=== PATIENT | female | born 1980 | race Caucasian/White ===

== ENCOUNTER 2016-05-13 00:02 | Emergency (ER) | payer SELFPAY ==
[2016-05-13 00:18] VITALS: BP 128/78; TEMP 97.8; O2SAT 98
[2016-05-13] MEDS ORDERED: IBUPROFEN 200 MG TAB PO ONE (00:18)
[2016-05-13] MEDS ORDERED: predniSONE 20 MG TAB PO ONE (00:18)
[2016-05-13] MEDS ORDERED: CETIRIZINE HCL 10 MG TAB PO ONE (00:18)
--- NOTE | 2016-05-13 00:47 | ED.PDOC ---
History of Present Illness - General Chief Complaint: ENT Problem Stated Complaint: c/o cant breath, nasal congestion Time Seen by Provider: 05/13/16 00:11 Source: patient Exam Limitations: no limitations - History of Present Illness Initial Comments: the patient is a 35-year-old female presenting to the emergency room secondary to cough congestion and sore throat progressive over the last 36 hours. No vomiting. She has been mildly hoarse. She feels a little short of breath. Sputum is mildly productive. Low-grade fevers. Generalized malaise. No chest pain. No pleuritic pain. Timing/Duration: 24 hours Severity: moderate Improving Factors: nothing Worsening Factors: nothing Associated Symptoms: cough, loss of appetite, malaise Allergies/Adverse Reactions: Allergies Penicillins Allergy (Severe, Verified 05/13/16 00:10) Review of Systems - Review of Systems Constitutional: States: fever, malaise EENTM: States: nose congestion, throat pain - mild Respiratory: States: cough, short of breath - ild Cardiology: States: no symptoms reported Gastrointestinal/Abdominal: States: no symptoms reported Genitourinary: States: no symptoms reported Musculoskeletal: States: no symptoms reported Skin: States: no symptoms reported Neurological: States: no symptoms reported All other Systems: No Change from Baseline Past Medical History (General) - Patient Medical History Hx Seizures: No Hx Stroke: No Hx Dementia: No Hx Asthma: No Hx of COPD: No Hx Cardiac Disorders: Yes - SVT, not taking any meds Hx Congestive Heart Failure: No Hx Pacemaker: No Hx Hypertension: No Hx Thyroid Disease: No Hx Diabetes: No Hx Gastroesophageal Reflux: No Hx Renal Disease: No Hx Cancer: No Hx of HIV: No Hx Hepatitis C: No Hx MRSA: No Surgical History: other - Vaccination History Hx Tetanus, Diphtheria Vaccination: No Hx Influenza Vaccination: No Hx Pneumococcal Vaccination: No Immunizations Up to Date: No - Social History Hx Tobacco Use: No Hx Chewing Tobacco Use: No Hx Alcohol Use: Yes Hx Substance Use: No Hx Substance Use Treatment: No Hx Depression: No Hx Physical Abuse: No Hx Emotional Abuse: No Hx Suspected Abuse: No - Female History Patient is a Female of Child Bearing Age (10 -59 yrs old): No Hx Last Menstrual Period: 11/04/15 Patient : No Expected Date of Delivery:: 12/14/12 Family Medical History - Family History Mother Family History: Unknown Living Status: Hx Cardiac Disease: Yes Physical Exam - Physical Exam General Appearance: Alert, Comfortable, No apparent distress Eye Exam: bilateral normal Ears, Nose, Throat: hearing grossly normal, nasal congestion, pharyngeal erythema - mild Neck: non-tender, full range of motion, supple - voice is hoarse Respiratory: chest non-tender, lungs clear, normal breath sounds, no respiratory distress, no accessory muscle use Cardiovascular/Chest: normal peripheral pulses, regular rate, rhythm, no edema Peripheral Pulses: radial,right: 2+, radial,left: 2+ Gastrointestinal/Abdominal: non tender, soft Rectal Exam: deferred Back Exam: normal inspection, no CVA tenderness Extremity: normal range of motion, non-tender, normal inspection, no pedal edema , no calf tenderness, normal capillary refill Neurologic: alert, normal mood/affect, oriented x 3 Skin Exam: normal color Comments: Vital Signs - 24 hr 05/13/16 00:12 Temperature 97.8 F Pulse Rate [ 78 Left] Respiratory 20 Rate Blood Pressure 128/78 [Left Arm] O2 Sat by Pulse 98 Oximetry Progress - Progress Progress: 05/13/16 00:47 the patient is a 35-year-old female presenting with what appears to be a viral upper respiratory tract infection. She was given one small dose of prednisone along with a dose of ibuprofen and Zyrtec. She can continue the ibuprofen and Zyrtec at home for the next few days. She can take 2 ibuprofen every 8 hours for the next 2 days with food. She can take 1 Zyrtec twice daily for the next 3 days. She needs to keep well-hydrated. She will additionally be written for 2 days of low-dose prednisone. Rapid flu was negative. ER warnings were given for any acute worsening. Follow up with primary care doctor towards the end of the week. Anticipate a cough for 2 weeks, and the hoarseness will likely worsen before it gets better. Departure - Departure Clinical Impression: Common cold Disposition: Discharge to Home or Self Care Condition: Fair Departure Forms: ED Discharge - Pt. Copy, Patient Portal Self Enrollment Instructions: DI for Common Cold Diet: regular diet Activity: increase activity as tolerated Referrals: GERDA ZEPEDA IV STAFF ELECTRONIC WARFARE OFFICER [Primary Care Provider] - 1-5 Days Additional Instructions: the patient is a 35-year-old female presenting with what appears to be a viral upper respiratory tract infection. She was given one small dose of prednisone along with a dose of ibuprofen and Zyrtec. She can continue the ibuprofen and Zyrtec at home for the next few days. She can take 2 ibuprofen every 8 hours for the next 2 days with food. She can take 1 Zyrtec twice daily for the next 3 days. She needs to keep well-hydrated. She will additionally be written for 2 days of low-dose prednisone. Rapid flu was negative. ER warnings were given for any acute worsening. Follow up with primary care doctor towards the end of the week. Anticipate a cough for 2 weeks, and the hoarseness will likely worsen before it gets better.
== END 2016-05-13 00:58 | disposition home or self-care (01) ==
LOC: ER 00:02
DX: J00 Acute nasopharyngitis [common cold] (principal); Z88.0 Allergy status to penicillin; I47.1 Supraventricular tachycardia
CPT/HCPCS: 87502; J7512

== ENCOUNTER 2016-08-25 19:11 | Emergency (ER) | payer SELFPAY ==
[2016-08-25 19:28] VITALS: BP 108/74
[2016-08-25] MEDS ORDERED: predniSONE 20 MG TAB PO ONE (19:33)
[2016-08-25] MEDS ORDERED: AZITHROMYCIN 250 MG TAB PO ONE (19:33)
--- NOTE | 2016-08-25 19:35 | ED.PDOC ---
History of Present Illness - General Chief Complaint: Respiratory Problem Stated Complaint: cough,fever, Time Seen by Provider: 08/25/16 19:32 Source: patient Exam Limitations: no limitations - History of Present Illness Initial Comments: the patient is a 35-year-old female presenting to the emergency room secondary to cough and mild shortness of breath the last 24-48 hours. Cough is largely nonproductive. She has had a mild runny nose. Mild sore throat. She does have a history of recurrent bronchitis and something of a questionable history of asthma. She has been using her albuterol inhaler frequently over the last few days. No chest pain. No syncopal or near syncope. Severity: moderate Improving Factors: nothing Worsening Factors: nothing Associated Symptoms: cough Allergies/Adverse Reactions: Allergies Penicillins Allergy (Severe, Verified 05/13/16 00:10) Home Medications: Ambulatory Orders Azithromycin 500 mg PO DAILY #4 tab 08/25/16 predniSONE [Prednisone] 20 mg PO DAILY #5 tab 08/25/16 Review of Systems - Review of Systems Constitutional: States: malaise EENTM: States: nose congestion, throat pain Respiratory: States: cough, short of breath - mild Cardiology: States: no symptoms reported Gastrointestinal/Abdominal: States: no symptoms reported Genitourinary: States: no symptoms reported Musculoskeletal: States: no symptoms reported Skin: States: no symptoms reported Neurological: States: no symptoms reported Endocrine: States: no symptoms reported All other Systems: No Change from Baseline Past Medical History (General) - Patient Medical History Hx Seizures: No Hx Stroke: No Hx Dementia: No Hx Asthma: No Hx of COPD: No Hx Cardiac Disorders: Yes - SVT Hx Congestive Heart Failure: No Hx Pacemaker: No Hx Hypertension: No Hx Thyroid Disease: No Hx Diabetes: No Hx Gastroesophageal Reflux: No Hx Renal Disease: No Hx Cancer: No Hx of HIV: No Hx Hepatitis C: No Hx MRSA: No Surgical History: tonsillectomy - Vaccination History Hx Tetanus, Diphtheria Vaccination: No Hx Influenza Vaccination: No Hx Pneumococcal Vaccination: No - Social History Hx Tobacco Use: No Hx Chewing Tobacco Use: No Hx Alcohol Use: Yes Hx Substance Use: No Hx Substance Use Treatment: No Hx Depression: No Hx Physical Abuse: No Hx Emotional Abuse: No Hx Suspected Abuse: No - Female History Patient is a Female of Child Bearing Age (10 -59 yrs old): Yes Hx Last Menstrual Period: 11/04/15 Patient : No Expected Date of Delivery:: 12/14/12 Family Medical History - Family History Mother Family History: Unknown Living Status: Hx Cardiac Disease: Yes Physical Exam - Physical Exam General Appearance: Alert, Comfortable, No apparent distress Eye Exam: bilateral normal Ears, Nose, Throat: nasal congestion, pharyngeal erythema - mildmild Neck: non-tender, full range of motion, supple Respiratory: chest non-tender, lungs clear, normal breath sounds, no respiratory distress, no accessory muscle use - she does however have a coarse cough Cardiovascular/Chest: normal peripheral pulses, regular rate, rhythm, no edema Peripheral Pulses: radial,right: 2+, radial,left: 2+, dorsalis pedis,right: 2+, dorsalis pedis,left: 2+ Gastrointestinal/Abdominal: normal bowel sounds, non tender, soft Rectal Exam: deferred Back Exam: normal inspection Extremity: normal range of motion, no pedal edema, normal capillary refill Neurologic: chemical handler II-XII nml as tested, alert, normal mood/affect, oriented x 3 Skin Exam: normal color Comments: Vital Signs - 24 hr 08/25/16 19:24 Temperature 98.6 F Pulse Rate [ 94 H Left Brachial] Respiratory 16 Rate Blood Pressure 108/74 [Left Arm] O2 Sat by Pulse 97 Oximetry Progress - Progress Progress: 08/25/16 19:35 the patient is a 35-year-old female with a history of asthma presenting with what appears to be a mild asthma flare with associated bronchitis. The patient will be placed on azithromycin 500 mg daily for 5 days with the first dose given here. She will also be placed on oral prednisone for 5 days with the first dose given here. She can continue her inhalers at home. She needs to follow up with her primary care doctor before the weekend. ER warnings are given for any acute worsening. Departure - Departure Clinical Impression: Bronchitis Asthma with exacerbation Qualifiers: Asthma severity: mild intermittent Qualified Code(s): J45.21 - Mild intermittent asthma with (acute) exacerbation Disposition: Discharge to Home or Self Care Condition: Fair Departure Forms: ED Discharge - Pt. Copy, Patient Portal Self Enrollment Instructions: DI for Asthma -- Adult Diet: regular diet Activity: increase activity as tolerated Referrals: GERDA ZEPEDA IV ELIGIBILITY ANALYST [Primary Care Provider] - 1-5 Days Prescriptions: Azithromycin 500 mg PO DAILY #4 tab predniSONE [Prednisone] 20 mg PO DAILY #5 tab Home Medications: Ambulatory Orders Azithromycin 500 mg PO DAILY #4 tab 08/25/16 predniSONE [Prednisone] 20 mg PO DAILY #5 tab 08/25/16 Additional Instructions: the patient is a 35-year-old female with a history of asthma presenting with what appears to be a mild asthma flare with associated bronchitis. The patient will be placed on azithromycin 500 mg daily for 5 days with the first dose given here. She will also be placed on oral prednisone for 5 days with the first dose given here. She can continue her inhalers at home. She needs to follow up with her primary care doctor before the weekend. ER warnings are given for any acute worsening.
[2016-08-25 20:05] VITALS: TEMP 98.8; O2SAT 96
== END 2016-08-25 20:00 | disposition home or self-care (01) ==
LOC: ER 19:11
DX: J45.21 Mild intermittent asthma with (acute) exacerbation (principal); I47.1 Supraventricular tachycardia; Z88.0 Allergy status to penicillin; Z79.899 Other long term (current) drug therapy
CPT/HCPCS: J7512; Q0144

== ENCOUNTER 2016-12-10 12:20 | Emergency (ER) | payer SELFPAY ==
[2016-12-10 12:45] VITALS: TEMP 99.8
--- NOTE | 2016-12-10 12:49 | ED.PDOC ---
History of Present Illness - General Chief Complaint: GI Problem Time Seen by Provider: 12/10/16 12:43 Source: patient Exam Limitations: no limitations - History of Present Illness Initial Comments: Patient presents with N/V/D for 6 hours. It all began at the same time. She has generalized abdominal pain which worsens then gets better right after vomiting. Has had x 2 and tubal ligation. No similarly sick contacts. No hematochezia. No other complaints. Ate at a chicken place last night. Timing/Duration: 4-6 hours Severity: moderate Improving Factors: nothing Worsening Factors: nothing Associated Symptoms: nausea/vomiting Allergies/Adverse Reactions: Allergies Penicillins Allergy (Severe, Verified 05/13/16 00:10) Home Medications: Ambulatory Orders Azithromycin 500 mg PO DAILY #4 tab 08/25/16 predniSONE [Prednisone] 20 mg PO DAILY #5 tab 08/25/16 Ondansetron [Zofran Odt] 4 mg PO Q4HR #12 tab 12/10/16 Review of Systems - Review of Systems Constitutional: States: no symptoms reported EENTM: States: no symptoms reported Respiratory: States: no symptoms reported Cardiology: States: no symptoms reported Gastrointestinal/Abdominal: States: see HPI Musculoskeletal: States: no symptoms reported Skin: States: no symptoms reported Neurological: States: no symptoms reported Endocrine: States: no symptoms reported Hematologic/Lymphatic: States: no symptoms reported Past Medical History (General) - Patient Medical History Hx Seizures: No Hx Stroke: No Hx Dementia: No Hx Asthma: No Hx of COPD: No Hx Cardiac Disorders: Yes - SVT Hx Congestive Heart Failure: No Hx Pacemaker: No Hx Hypertension: No Hx Thyroid Disease: No Hx Diabetes: No Hx Gastroesophageal Reflux: No Hx Renal Disease: No Hx Cancer: No Hx of HIV: No Hx Hepatitis C: No Hx MRSA: No Surgical History: tonsillectomy, other - Vaccination History Hx Tetanus, Diphtheria Vaccination: No Hx Influenza Vaccination: No Hx Pneumococcal Vaccination: No - Social History Hx Tobacco Use: No Hx Chewing Tobacco Use: No Hx Alcohol Use: Yes Hx Substance Use: No Hx Substance Use Treatment: No Hx Depression: No Hx Physical Abuse: No Hx Emotional Abuse: No Hx Suspected Abuse: No - Female History Hx Last Menstrual Period: 11/04/15 Patient : No Expected Date of Delivery:: 12/14/12 Family Medical History - Family History Mother Family History: Unknown Living Status: Hx Cardiac Disease: Yes Departure - Departure Clinical Impression: Gastroenteritis Disposition: Discharge to Home or Self Care Condition: Good Departure Forms: ED Discharge - Pt. Copy, Patient Portal Self Enrollment Diet: resume usual diet Activity: increase activity as tolerated Referrals: GERDA ZEPEDA IV, SUPERVISOR PAINTING [Primary Care Provider] - 1-2 Weeks Prescriptions: Ondansetron [Zofran Odt] 4 mg PO Q4HR #12 tab Home Medications: Ambulatory Orders Azithromycin 500 mg PO DAILY #4 tab 08/25/16 predniSONE [Prednisone] 20 mg PO DAILY #5 tab 08/25/16 Ondansetron [Zofran Odt] 4 mg PO Q4HR #12 tab 12/10/16
[2016-12-10] MEDS ORDERED: SODIUM CHLORIDE 0.9% 1000ML 1,000 ML IVS ONE (12:53)
[2016-12-10] MEDS ORDERED: ONDANSETRON INJ 4 MG/2 ML VIAL IV ONE (12:53)
[2016-12-10 14:34] VITALS: BP 132/85; O2SAT 97
== END 2016-12-10 14:34 | disposition home or self-care (01) ==
LOC: ER 12:20
DX: K52.9 Noninfective gastroenteritis and colitis, unspecified (principal); I47.1 Supraventricular tachycardia; Z88.0 Allergy status to penicillin; Z79.899 Other long term (current) drug therapy
CPT/HCPCS: 36415; 80053; 81001; 83690; 85025; J2405; J7030

== ENCOUNTER 2017-06-11 10:21 | Inpatient (IN) | payer SELFPAY ==
[2017-06-11] MEDS ORDERED: ACETAMINOPHEN 500 MG TAB ONE ×2 (10:45→11:24)
[2017-06-11] MEDS ORDERED: KETOROLAC TROMETHAMINE INJ 30 MG/ML VIAL IV ONE ×2 (10:51→16:07)
[2017-06-11] MEDS ORDERED: SODIUM CHLORIDE 0.9% 1000ML 1,000 ML IVS ONE ×2 (10:51→14:42)
[2017-06-11] MEDS ORDERED: SODIUM CHLORIDE 0.9% (FLUSH) 10 ML SYG IV PRN (10:51)
[2017-06-11] MEDS ORDERED: ONDANSETRON INJ 4 MG/2 ML VIAL IV ONE (10:51)
[2017-06-11] MEDS ORDERED: MORPHINE SULFATE INJ 10 MG/ML VIAL IV ONE (10:52)
[2017-06-11] MEDS ORDERED: ACETAMINOPHEN 500 MG TAB PO ONE (11:22)
--- NOTE | 2017-06-11 11:48 | ED.PDOC ---
History of Present Illness - General Chief Complaint: GI Problem Stated Complaint: fever, vomiting Time Seen by Provider: 06/11/17 10:45 Information Source: patient, family Exam Limitations: no limitations - History of Present Illness Initial Comments: PT REPORTS ONSET OF EPIGASTRIC ABDOMINAL PAIN ASSOCIATED WITH FEVER, NAUSEA, AND VOMITING SINCE THIS AM. Abdominal Pain Onset Location: epigastric Pain Radiation: no radiation Quality: severe, sharpness, steady Timing/Duration: 1-3 hours Improving Factors: nothing Associated Symptoms: fever/chills, nausea/vomiting Review of Systems - Review of Systems Constitutional: States: see HPI, chills, fever EENTM: Denies: nose congestion, throat pain Respiratory: Denies: cough, short of breath Cardiology: Denies: chest pain, palpitations Gastrointestinal/Abdominal: States: abdominal pain, nausea, vomiting. Denies: see HPI, diarrhea Genitourinary: Denies: dysuria, frequency Musculoskeletal: Denies: joint pain, joint swelling Skin: Denies: dryness, lesions Neurological: Denies: headache, numbness Endocrine: States: no symptoms reported Hematologic/Lymphatic: States: no symptoms reported Past Medical History (General) - Patient Medical History Hx Seizures: No Hx Stroke: No Hx Dementia: No Hx Asthma: No Hx of COPD: No Hx Cardiac Disorders: Yes - SVT Hx Congestive Heart Failure: No Hx Pacemaker: No Hx Hypertension: No Hx Thyroid Disease: No Hx Diabetes: No Hx Gastroesophageal Reflux: No Hx Renal Disease: No Hx Cancer: No Hx of HIV: No Hx Hepatitis C: No Hx MRSA: No Surgical History: tonsillectomy, other - Vaccination History Hx Tetanus, Diphtheria Vaccination: No Hx Influenza Vaccination: No Hx Pneumococcal Vaccination: No - Social History Hx Tobacco Use: No Hx Chewing Tobacco Use: No Hx Alcohol Use: Yes Hx Substance Use: No Hx Substance Use Treatment: No Hx Depression: No Hx Physical Abuse: No Hx Emotional Abuse: No Hx Suspected Abuse: No - Female History Hx Last Menstrual Period: 11/04/15 Patient : No Expected Date of Delivery:: 12/14/12 Family Medical History - Family History Mother Family History: Unknown Living Status: Hx Cardiac Disease: Yes Physical Exam - Physical Exam General Appearance: Alert, Obvious distress, Well Developed, Well Groomed, Well Hydrated Eyes, Ears, Nose, Throat Exam: normal ENT inspection Neck: normal inspection Respiratory: lungs clear, no respiratory distress Cardiovascular/Chest: no murmur, tachycardia Gastrointestinal/Abdominal: soft, tenderness - DIFFUSE TENDERNESS, WORSE IN THE EPIGASTRIC REGION Extremity: normal inspection Neurologic: alert, normal mood/affect, oriented x 3 Skin Exam: normal color, warm/dry Progress - Progress Progress: 06/11/17 12:34 PT REPORTS SIGNIFICANT IMPROVEMENT IN PAIN AND RESOLUTION OF NAUSEA AFTER ZOFRAN , TORADOL AND MORPHINE. AWAITING CT RESULTS. 06/11/17 13:19 CT FINDINGS DISCUSSED WITH PATIENT. CASE DISCUSSED WITH RUPINDER TANG WHO AGREES TO ADMIT FOR HYDRATION AND FURTHER WORKUP. REPEAT TEMP 101.6. SBP 96. HR 112. - Results/Orders Results/Orders: 06/11/17 10:51 IV Care:Saline Lock per Protoc QSHIFT Sodium Chloride 0.9% (Flush) [Saline Flush Syringe] 10 ml IV PRN PRN Sodium Chloride 0.9% 1000ML [Ns 1000 ml] 1,000 ml IVS ONCE 06/11/17 11:00 EKG STAT 06/11/17 11:37 Abdomen/Pelvis w/Contrast [CT] Stat 06/11/17 11:38 Hold Metformin x 48Hrs [id number] Laboratory Results - last 24 hr 06/11/17 06/11/17 06/11/17 11:07 11:07 11:07 WBC 13.7 H RBC 4.94 Hgb 13.6 Hct 40.8 MCV 82.5 MCH 27.6 MCHC 33.5 RDW 13.8 Plt Count 270 MPV 7.4 Absolute Neuts (auto) 12.10 H Absolute Lymphs (auto) 0.90 L Absolute Monos (auto) 0.70 Absolute Eos (auto) 0.00 Absolute Basos (auto) 0.00 Neutrophils % 88.2 H Lymphocytes % 6.4 L Monocytes % 5.1 Eosinophils % 0.1 L Basophils % 0.2 Sodium 135 Potassium 3.7 Chloride 101 Carbon Dioxide 20 L Anion Gap 17.7 BUN 11 Creatinine 0.64 BUN/Creatinine Ratio 17.2 Random Glucose 129 H Serum Osmolality 271.2 L Calcium 9.5 Total Bilirubin 0.8 Direct Bilirubin < 0.1 Indirect Bilirubin 0.7 AST 37 ALT 83 H Alkaline Phosphatase 71 Serum Total Protein 7.8 Albumin 4.4 Lipase 22 Serum HCG, Qual Negative Urine Color Urine Appearance Urine pH Ur Specific [place] Urine Protein Urine Glucose (UA) Urine Ketones Urine Blood Urine Nitrite Urine Bilirubin Urine Urobilinogen Ur Leukocyte Esterase Urine RBC Urine WBC Ur Epithelial Cells Urine Bacteria 06/11/17 11:07 WBC RBC Hgb Hct MCV MCH MCHC RDW Plt Count MPV Absolute Neuts (auto) Absolute Lymphs (auto) Absolute Monos (auto) Absolute Eos (auto) Absolute Basos (auto) Neutrophils % Lymphocytes % Monocytes % Eosinophils % Basophils % Sodium Potassium Chloride Carbon Dioxide Anion Gap BUN Creatinine BUN/Creatinine Ratio Random Glucose Serum Osmolality Calcium Total Bilirubin Direct Bilirubin Indirect Bilirubin AST ALT Alkaline Phosphatase Serum Total Protein Albumin Lipase Serum HCG, Qual Urine Color Yellow Urine Appearance Clear Urine pH 6.0 Ur Specific [place] 1.020 Urine Protein Negative Urine Glucose (UA) Negative Urine Ketones Trace Urine Blood Small H Urine Nitrite Negative Urine Bilirubin Negative Urine Urobilinogen 0.2 Ur Leukocyte Esterase Negative Urine RBC 0 Urine WBC 0 Ur Epithelial Cells 5-10 Urine Bacteria 0 - EKG/XRAY/CT EKG: Sinus, Tachy - @129BPM, NL INTERVALS, RAD, no ST T wave changes - NO OLD EKG FOR COMPARISON CT: ABD PEL: NO ACUTE FINDINGS PER RAD, INCIDENTAL FINDINGS. SEE REPORT CT Ordered: Yes CT Interpretation Call Back: No Departure - Departure Clinical Impression: Acute febrile illness, Nausea & vomiting, Epigastric abdominal tenderness, Pelvic mass in female, Pulmonary nodules Time of Disposition: 13:23 Disposition: Admit Patient Condition: Fair Departure Forms: ED Discharge - Pt. Copy, Patient Portal Self Enrollment Referrals: GERDA ZEPEDA IV, GERIATRIC CASE MANAGER [Primary Care Provider] - 1-2 Weeks Home Medications: Ambulatory Orders Azithromycin 500 mg PO DAILY #4 tab 08/25/16 predniSONE [Prednisone] 20 mg PO DAILY #5 tab 08/25/16 Ondansetron [Zofran Odt] 4 mg PO Q4HR #12 tab 12/10/16 Decision To Admit - Decistion To Admit Decision to Admit Reason: Admit from ER Decision to Admit Date: 06/11/17 - CASE DISCUSSED WITH RUPINDER TANG WHO AGREES TO ADMIT Decision to Admit Time: 13:23
--- NOTE | 2017-06-11 12:40 | CT ---
EXAM DESCRIPTION: Abdomen/Pelvis w/Contrast CLINICAL HISTORY: diffuse abdominal pain, fever, n/v COMPARISON: None. TECHNIQUE: Postcontrast CT images of the abdomen and pelvis are obtained using standard imaging protocol. This exam was performed according to our departmental dose-optimization program, which includes automated exposure control, adjustment of the mA and/or kV according to patient size and/or use of iterative reconstruction technique . FINDINGS: The visualized lung bases show several ill-defined pulmonary nodules in the mid left lower lobe and lingula of the left upper lobe. The largest measures 8 mm greatest diameter. Trace bilateral pleural effusions are seen. Liver is enlarged measuring 18.4 cm. Decreased attenuation of the liver compared to the spleen without focal enhancing mass seen. The spleen, pancreas, adrenal glands, and gallbladder are unremarkable. Abdominal vasculature is unremarkable. Kidneys show no significant nephrolithiasis or ureteral obstruction. There are small less than 1 cm hypodensities in the cortex of the left and right kidneys that probably represent cortical cysts but are too small to adequately characterize. Urinary bladder is unremarkable. There is a large mass extending anteriorly from the lower uterine segment cervical portion of the uterus measuring at least 6.0 x 3.7 x 6.3 cm. The ovaries are unremarkable. The appendix is not well identified. No secondary signs of acute appendicitis are seen. Stomach is unremarkable. No small bowel obstruction is seen. Mildly increased volume of formed fecal material throughout the colon is seen. Mild scattered diverticuli of the descending to sigmoid colon are seen without associated inflammatory changes or fluid collections. No pathologic lymphadenopathy. No abnormal fluid collection or free intraperitoneal air is seen. The osseous structures show no aggressive bony lesions. Small fat-containing periumbilical hernia. IMPRESSION: No acute findings on CT of the abdomen and pelvis. Hepatomegaly with evidence of diffuse fatty infiltration of the liver. Mild colon diverticulosis without CT evidence of diverticulitis. Mild constipation or obstipation of the colon. Large mass anterior to the lower uterine segment and cervical region is seen and could represent uterine fibroid versus cervical mass. Recommend further evaluation with pelvic ultrasound. Trace bilateral pleural effusions are seen. Several nodules in the left lung are incidentally seen. This could represent infectious or inflammatory etiology. Recommend follow-up CT imaging in 3-6 months to determine long-term stability. 2017 Fleischner Society Recommendations for Multiple Solid Lung Nodules Follow-Up base on size (average of long- and short-axis diameters). Use most suspicious nodule for followup. Nodule Size <6 mm Low-Risk Patient: No routine follow-up Nodule Size <6 mm High-Risk Patient: Optional CT at 12 months Nodule Size 6-8 mm Low-Risk Patient: CT at 3-[address] at 18-24 months Nodule Size 6-8 mm High-Risk Patient: CT at 3-6 months then at 18-24 months Nodule Size (mm) >8 Low-Risk Patient: CT at 3-6 months, then consider CT at 18-24 months Nodule Size (mm) >8 High-Risk Patient: CT at 3-6 months, then at 18-24 months Electronically signed by: Richard Weems MD 06/11/2017 12:39 PM [facility]
--- NOTE | 2017-06-11 13:56 | HP ---
SUPERVISING PHYSICIAN: Antwan Pena MD CHIEF COMPLAINT: Fever with vomiting. HISTORY OF PRESENT ILLNESS: Ms. Hester is a 36 year-old female patient who presented to the Emergency Department today with acute onset of epigastric abdominal pain associated with fever, nausea and some vomiting. She noted the pain was primarily over the epigastric region with no radiation and it noted to be severe, sharp and steady. In the Emergency Room, initial vital signs showed she was febrile with a temperature of 105.1 with a pulse of 133, blood pressure 136/71. Saturation 99% on room air with respirations of 24. She was given Toradol which resulted in a significant decrease in her pain level as well as Tylenol for the fever. Laboratory studies showed she had a leukocytosis of 13,700 with a left shift. Her chemistries were essentially unremarkable. Lactic acid was normal at 1.6. Liver enzymes were all normal except for a slightly elevated ALT of 83, lipase normal as well as her serum HCG was negative. Urinalysis just showed a small amount of blood, otherwise was unremarkable. Strep screen was negative,influenza for A and B was negative. She noted that she had not been around anyone with similar symptoms and was not having any significant diarrhea and again, her onset of symptoms was acute with a fever this morning. She had no reported cough, chest congestion, chest pain, nasal congestion or sore throat. Given the degree of her fever and administer pain, additional workup included a CT of her abdomen and pelvis with contrast and per radiology interpretation there were no acute findings on the CT of the abdomen and pelvis, though there was note of hepatomegaly, some mild colon diverticulosis without any evidence of diverticulitis, mild constipation as well as a noted large mass anterior to the large uterine segment in cervical region. The patient now is going to be admitted to the medical/surgical floor for further evaluation and treatment. She was admitted in stable condition. PAST MEDICAL HISTORY: SCTs during . No other chronic illnesses. PAST SURGICAL HISTORY: 1. x2. 2. Tubal ligation. 3. Tonsillectomy and adenoidectomy. Last menstrual period was 's day. CURRENT MEDICATIONS: No chronic medications listed. ALLERGIES: PENICILLIN FAMILY HISTORY: Noncontributory SOCIAL HISTORY: The patient works at [employer]. She lives in [place], is , does not drink or use alcohol or illicit drugs. REVIEW OF SYSTEMS: CONSTITUTIONAL: As noted in history of present illness, chills and fever. HEENT: Denied any nasal congestion, sore throat, earaches. RESPIRATORY: Denied cough, shortness of breath. CARDIOVASCULAR: Denied chest pains, palpitations or syncopal episodes. GASTROINTESTINAL: As noted in history of present illness. Nausea and vomiting with epigastric abdominal pain. No reported diarrhea. GENITOURINARY: No dysuria, hematuria or any other urinary symptoms. MUSCULOSKELETAL: Denied joint pains, joint swelling. INTEGUMENTARY: Denies any lesions, rashes. NEUROLOGIC: Denied headache, numbness, vision changes PHYSICAL EXAMINATION: VITAL SIGNS: Temperature in the Emergency Room was 105.1 with pulse of 133, blood pressure 136/71. Respirations 20, saturation 99% on room air. Initial weight 97.9 kg. GENERAL: Patient was alert and in mild distress secondary to pain, well- explored, well-groomed and well hydrated. HEENT: Tympanic membranes clear bilaterally. Oropharynx pink, moist without any lesions. NECK: Supple, non-tender, full range of motion. No jugular venous distention. CHEST: Lungs clear to auscultation without any rales, wheezing or rhonchi. CARDIOVASCULAR: Regular rate and rhythm without appreciable murmurs, rubs, or gallops. ABDOMEN: She has tenderness across the epigastric region, no rebound tenderness. No peritoneal signs. Bowel sounds are present. EXTREMITIES: No cyanosis, clubbing, or edema. NEUROLOGIC: She was alert and oriented x 3. LABORATORY: White count elevated at 13,700 with hemoglobin of 13.6, hematocrit 40.8. Platelet count 270,000, differential showed to have a left shift. Chemistries showed normal electrolytes, BUN 11, creatinine 0.64, glucose 129, lactic acid 1.6. Liver functions showed to be within normal limits except for a slightly elevated ALT at 83, lipase normal at 22 and serum HCG was negative. Urinalysis showed a small amount of blood on dipstick, otherwise within normal limits. MICROBIOLOGY: Group strep A screen was negative. Blood cultures are pending. Influenza A and B antigen negative for both A and B and group strep culture is pending. RADIOLOGY: Abdomen and pelvis CT with contrast showed no acute findings of the abdomen and pelvis. Of note was hepatomegaly with evidence of diffuse fatty infiltration of the liver, some mild colon diverticulosis without any of diverticulitis along with some mild constipation, obstipation of the colon. There was also note of a large mass to the anterior uterine segment in the cervical region requiring further workup with a pelvic ultrasound. There was note of trace bilateral pleural effusions and several nodules in the lungs were seen. Pelvis ultrasound prior to admission per radiology interpretation showed low anterior wall subserosal uterine fibroid measuring up t 5.7 cm that correlates with what was seen on comparison CT. Ovaries were normal appearing. ASSESSMENT: 1. Acute abdominal pain with nausea and vomiting and fever with no acute findings on CT of the abdomen. Possible acute viral gastroenteritis. 2. Mild dehydration secondary to nausea and vomiting. 3. Leukocytosis with a fever, no identified source of infection requiring initiation of antibiotics to further rule out occult infection with further testing. 4. Obesity as noted with a BMI of 34.9. 5. History of SVTs in . 6. Uterine fibroid as noted on pelvic ultrasound and CT findings. PLAN: The patient will be admitted to the medical/surgical floor for further treatment and evaluation. Given that she has 105 temperature but responded well to Tylenol and Toradol despite having negative flu and other unidentified sources of infection, initial admission with start her on Tamiflu as well as Meropenem given that she has allergies to penicillins. Will do a CT of the chest in the morning. She will be given Tylenol and Toradol as needed for fever. Will start her on IV fluids with D5 half normal saline and 20 of potassium to run at 125 per hour. Will plan to repeat laboratory studies in the morning to include a CBC and CMP. Anticipate her length of stay to be at least 2 to 3 days. She will be n.p.o. for at least 24 hours given her nausea and vomiting as well as epigastric discomfort. Will start her on Protonix 40 mg daily IV. She will be on DVT prophylaxis as per protocol. Until clinically stable, will continue to monitor and treat appropriately until discharge. #[id number] [facility]
--- NOTE | 2017-06-11 14:15 | US ---
EXAM DESCRIPTION: Pelvic,Non-OB CLINICAL HISTORY: 36 years Female F/U findings on CT-pelvic mass MAIN . COMPARISON: CT June 11, 2017. TECHNIQUE: transvaginal sonographic images of the pelvis were acquired and submitted for review. FINDINGS: Uterus: * Orientation- Anteverted * Size- approximately approximately 9.6 x 4.5 x 6.5 cm * Mass- low anterior wall subserosal fibroid measures 5.7 x 5.1 x 3.8 cm. No aggressive lesions. * Cervix- unremarkable. * Endometrium- normal endometrial stripe thickness is present measuring approximately 0.6 cm. No endometrial mass is demonstrated. Ovaries: * Size- right measures approximately 3.9 x 2.9 x 1.9 cm; left measures approximately 3.5 x 2.6 x 2.7 cm * Mass- no aggressive appearing lesions. Normal follicles. * Vascular flow- Present. Adnexa: * Mass- None. * Free fluid - None. IMPRESSION: Low anterior wall subserosal uterine fibroid measuring up to 5.7 cm. This correlates with what is seen on comparison CT. Normal-appearing ovaries. Electronically signed by: Iain Simmons MD 06/11/2017 2:14 PM [facility]
[2017-06-11] MEDS ORDERED: ONDANSETRON INJ 4 MG/2 ML VIAL IV PRN (14:49)
[2017-06-11] MEDS: OSELTAMIVIR 75 MG CAP PO SCH ×2 (14:53→21:10)
[2017-06-11] MEDS: PANTOPRAZOLE SODIUM IV 40 MG VIAL IV SCH (14:57)
[2017-06-11] MEDS ORDERED: MEROPENEM 1 GM VIAL IVPB ONE ×2 (15:00→20:11)
[2017-06-11] MEDS ORDERED: IV SET AND CAP CHANGE INJ INJ SCH (15:00)
[2017-06-11] MEDS ORDERED: SODIUM CHL 0.9% 50ML MIN-BAG+ 50 ML IVPB ONE ×2 (15:00→20:11)
[2017-06-11] MEDS: MEROPENEM 1 GM in SODIUM CHL 0.9% 50ML MIN-BAG+ 50 ML IVPB SCH ×2 (15:03→23:22)
[2017-06-11] MEDS: ACETAMINOPHEN 325 MG TAB PO PRN ×2 (15:17→21:45)
[2017-06-11] MEDS: KCL 20MEQ/D5 1/2NS 1,000 ML IVS PRN ×2 (15:42→23:32)
[2017-06-11] MEDS ORDERED: MORPHINE SULFATE INJ 10 MG/ML VIAL IV PRN (16:09)
--- NOTE | 2017-06-11 20:53 | PCM.CORE ---
Physician DVT/VTE - Nurse DVT Assessment & Total Each Risk Factor Represents 3 Points: Medical PT with Hx of [place], CHF, Severe infection/sepsis Each Risk Factor is 1 Point: Obesity (BMI >25) DVT Assessment Score: 4 - 3-4 High Risk Treatments: Early Ambulation *, Sequential Compression Device Pharmacological: Enoxaparin 40 mg SQ Daily
[2017-06-11] MEDS ORDERED: ENOXAPARIN SODIUM 40 MG/0.4 ML SYG SUBCU SCH (21:00)
[2017-06-11] MEDS: PROMETHAZINE W/CODEINE SYR 5 ML UD PO PRN (21:51)
[2017-06-11] MEDS: SODIUM CHLORIDE 0.9% (FLUSH) 10 ML SYG IV PRN (23:26)
[2017-06-12] MEDS ORDERED: MEROPENEM 1 GM VIAL IVPB ONE ×3 (02:04→23:25)
[2017-06-12] MEDS ORDERED: SODIUM CHL 0.9% 50ML MIN-BAG+ 50 ML IVPB ONE ×3 (02:04→23:25)
[2017-06-12] MEDS: ACETAMINOPHEN 325 MG TAB PO PRN (05:46)
[2017-06-12] MEDS: SODIUM CHLORIDE 0.9% (FLUSH) 10 ML SYG IV PRN ×2 (06:59→23:30)
[2017-06-12] MEDS: MEROPENEM 1 GM in SODIUM CHL 0.9% 50ML MIN-BAG+ 50 ML IVPB SCH ×3 (06:59→23:30)
[2017-06-12] MEDS: KCL 20MEQ/D5 1/2NS 1,000 ML IVS PRN (07:36)
[2017-06-12] MEDS: OSELTAMIVIR 75 MG CAP PO SCH ×2 (09:12→20:30)
--- NOTE | 2017-06-12 10:20 | RAD ---
PROCEDURE: Chest,2 Views CLINICAL HISTORY: PULMONARY NODULES INDICATION: Same as above COMPARISON: 06/08/2015 TECHNIQUE: PA and and lateral chest radiographs were obtained. FINDINGS: There is presence of an ill-defined nodular opacity measuring 2.6 x 2.7 cm , new in appearance since the prior examination on 07/07/2015 and most likely in the right middle lobe of the lung. There is an adjacent ill-defined opacity seen in the periphery of the right midlung zone Note is made of a few benign calcified granulomas in the left lingula and the left lower lobe of the lung There are no pneumothoraces or pleural effusions. The pulmonary vascularity is normal The cardiomediastinal silhouette is unremarkable for patient's age and sex. IMPRESSION: There is presence of an ill-defined nodular opacity measuring 2.6 x 2.7 cm , new in appearance since the prior examination on 07/07/2015 and most likely in the right middle lobe of the lung. There is an adjacent ill-defined opacity seen in the periphery of the right midlung zone. Further assessment of this finding can be done with a dedicated CT of the chest Electronically signed by: José Luis Vinson MD 06/12/2017 10:18 AM [employer] Workstation: [id number]
[2017-06-12] MEDS: PANTOPRAZOLE SODIUM IV 40 MG VIAL IV SCH (14:35)
[2017-06-12] MEDS ORDERED: KETOROLAC TROMETHAMINE INJ 30 MG/ML VIAL IV ONE (15:32)
[2017-06-12] MEDS: PROMETHAZINE W/CODEINE SYR 5 ML UD PO PRN (19:51)
--- NOTE | 2017-06-12 19:54 | PN ---
DATE: 06/12/17 SUPERVISING PHYSICIAN: Antwan Pena M.D. SUBJECTIVE: The patient notes she is feeling much better today. She did have a low-grade fever last night around 10:00 of 100.3, but since then has been afebrile. She has had no more nausea or vomiting and no diarrhea. She is voicing that she would like to try increasing her diet to clear liquids and then advancing as possible. OBJECTIVE: VITAL SIGNS: T max was 100.3, pulse 85, blood pressure 132/70, respirations 18, satting 98% on room air. I's and O's show a positive balance of 613 with 1813 in, 1200 out. Weight is 99.7 kg. CHEST: Lungs were clear today, just diminished towards the bases. HEART: Regular rate and rhythm. ABDOMEN: Obese but soft, non-tender. Positive bowel sounds. EXTREMITIES: No clubbing, cyanosis or edema. NEUROLOGIC: She is alert and oriented times three. LABORATORY: White count remains persistently high at 13,900, hemoglobin 11.3, hematocrit 33.6, platelet count 205,000. Differential does show a left shift. Chemistries show normal electrolytes today with creatinine 0.67. Liver functions all show to be normal now with a normal amylase and lipase. Rapid Strep was negative. Blood cultures remain negative at 24 hours. Flu was negative for both A and B. RADIOLOGY: Chest x-ray this morning two view chest per radiology interpretation shows the presence of an ill-defined nodular opacity measuring 2.6 x 2.7 cm in appearance since previous exam on 07/07/15 most likely in the right middle lobe of the lung with adjacent ill-defined opacity seen in the periphery of the right mid lung zone requiring further assessment with CT of the chest. ASSESSMENT: 1. Acute abdominal pain with nausea, vomiting and fever on admission with no acute findings on CT felt to be secondary to viral gastroenteritis showing improvement with IV fluids. 2. Mild dehydration secondary to nausea and vomiting, improved with IV fluids. 3. Leukocytosis with a fever with no defined source of infection but showing improvement clinically with antibiotics to include Meropenem with the persistence of leukocytosis with no true infectious source identified as of yet. 4. Obesity as noted with a BMI of 34.9. 5. History of SVTs in . 6. Uterine fibroid as noted on pelvic ultrasound and CT findings. 7. Right lung nodule requiring further followup with CT of the chest with contrast pending tomorrow. PLAN: The patient will continue with antibiotics today for at least an additional 12 to 24 hours as she has been showing good improvement and has only had 1 low-grade temperature. She is on Meropenem and is allergic to Penicillin. Will be able to hopefully discharge tomorrow after reassessment and rechecking laboratory studies. I will schedule her for a CT of the chest with contrast to further characterize the nodules noted on x-rays. She has been having some mild headaches that have responded equally to Tylenol and Toradol. I will advance her diet later today as long as she is tolerating clear liquids at lunch and will plan to saline lock her once she is taking adequate oral intake. We will hopefully be able to discharge tomorrow. I will plan to repeat labs in the morning. Until then, continue to monitor and treat appropriately. #[id number] [facility]
[2017-06-12] MEDS: SODIUM CHLORIDE 0.9% (FLUSH) 10 ML SYG IV SCH (20:30)
[2017-06-12] MEDS ORDERED: ENOXAPARIN SODIUM 40 MG/0.4 ML SYG SUBCU SCH (21:00)
[2017-06-13] MEDS: PROMETHAZINE W/CODEINE SYR 5 ML UD PO PRN ×2 (02:12→08:51)
[2017-06-13] MEDS ORDERED: SODIUM CHL 0.9% 50ML MIN-BAG+ 50 ML IVPB ONE ×2 (05:07→14:35)
[2017-06-13] MEDS ORDERED: MEROPENEM 1 GM VIAL IVPB ONE ×2 (05:08→14:36)
[2017-06-13] MEDS: MEROPENEM 1 GM in SODIUM CHL 0.9% 50ML MIN-BAG+ 50 ML IVPB SCH ×2 (06:35→14:39)
[2017-06-13] MEDS: SODIUM CHLORIDE 0.9% (FLUSH) 10 ML SYG IV PRN (06:35)
--- NOTE | 2017-06-13 06:54 | CT ---
EXAM DESCRIPTION: CT CHEST WITHOUT CONTRAST CLINICAL HISTORY: f/u on findings for pulmonary nodules; Fever COMPARISON: None Available. TECHNIQUE: Axial CT images of the chest obtained following the uncomplicated intravenous administration of iodinated contrast from the thoracic inlet through the diaphragm. FINDINGS: Chest: Visualized thyroid gland is unremarkable. Great vessels have normal anatomic configuration. Thoracic aorta is unremarkable. No definite abnormalities the pulmonary artery. No cardiomegaly, pericardial effusion, coronary artery atherosclerosis. No abnormalities of the esophagus. No significant mediastinal lymphadenopathy. Lung windows demonstrate no abnormalities of the visualized trachea. Patchy bilateral solid and groundglass nodular opacities predominantly involving the right upper and left lower lobes. Small bilateral pleural effusions. No pneumothorax. Limited images of the upper abdomen demonstrate no abnormalities of the visualized liver or spleen. Minimal degenerative change of the spine. No acute osseous abnormalities identified. DLP: 636.01 mGy-cm IMPRESSION: 1. Patchy bilateral groundglass and nodular opacities. These findings could be seen with bilateral pneumonia, septic emboli, or inflammatory vasculitis such as Franklin's granulomatosis. Follow-up CT in 3 months to confirm resolution recommended. This exam was performed according to our departmental dose-optimization program, which includes automated exposure control, adjustment of the mA and/or kV according to patient size and/or use of iterative reconstruction technique. Electronically signed by: Oleg Sethi 06/13/2017 6:53 AM [employer]
[2017-06-13] MEDS: OSELTAMIVIR 75 MG CAP PO SCH (08:51)
[2017-06-13] MEDS: SODIUM CHLORIDE 0.9% (FLUSH) 10 ML SYG IV SCH (08:51)
[2017-06-13 14:20] VITALS: BP 117/72; TEMP 96.4; O2SAT 97
[2017-06-13] MEDS: PANTOPRAZOLE SODIUM IV 40 MG VIAL IV SCH (14:39)
--- NOTE | 2017-06-14 09:22 | DS ---
DISCHARGE DIAGNOSIS: 1. Acute abdominal pain with nausea, vomiting and high fever with no specific etiology noted and showing clinical and laboratory improvement. Possibility of an acute viral gastroenteritis responding to IV therapy and supportive care or other viral illness to be considered. 2. Mild dehydration secondary to nausea and vomiting, improved with parenteral fluid supplementation. 3. Leukocytosis with a fever with no defined source of infection, showing improvement on meropenem and Tamiflu with no culture positive source. 4. Obesity as noted with a body mass index of 34.9. 5. History of supraventricular tachycardia during in the past. 6. History of a large uterine fibroid noted on pelvic ultrasound and CT, suggesting gynecological followup. 7. History of right pulmonary nodules noted on CT of the chest and chest x-ray , suggesting ongoing clinical and specialty followup. HISTORY OF PRESENT ILLNESS: This 36-year-old white female was admitted to the hospital from the Emergency Room after the acute onset of epigastric abdominal pain with associated temperature of almost 105, nausea and vomiting noted. The pain was primarily in the epigastric region with no significant radiation and was very severe, sharp and steady. Her pulmonary saturation was 99% on room air. Leukocytosis of almost 14,000 with a left shift was noted. Lactic acid was normal. Urinalysis did not show any evidence of a specific urinary tract infection. The patient was admitted for evaluation and treatment because of the severity of the onset of her illness. The possibility of an underlying septicemia, sepsis, bacteremia was to be considered. No specific evidence of a surgical abdomen was noted. LABORATORY: White count initially was 13,700 with 88% neutrophils with treatment to continue. Her white count at discharge was 8,700 with 66% neutrophils, hemoglobin 11.6. Normocytic/normochromic presentation. Chemistries showed potassium 3.7, BUN 7 at discharge, creatinine 0.67, glucose 120, serum osmolality 269, lactic acid 1.8. Liver enzymes showed ALT going from 83 to 53 at discharge. Albumin 3.5. Pancreatic enzymes normal. test negative. Urine showed some hematuria, otherwise no bacteria noted. Group A strep was negative. Cultures of the blood and throat as well as influenza A and B antigen tests were negative. Abdominopelvic CT scan was initially performed in the Emergency Room and showed a fairly large mass extending from the cervical region of the uterus. Some visualized portions of the lung bases did reveal some ill-defined pulmonary nodules and further investigation was performed with a chest CT later. She did have a large mass extended from the lower uterine segment, cervical portion, measuring 6 by 3.7 by 6.3 cm. Gallbladder was nonsignificant on examination with followup suggested. Pelvic sonogram shows what appears to be a uterine fibroid with further gynecological evaluation to continue. CT of the chest was performed and showed patchy bilateral ground glass and nodular opacities, consistent with either pneumonia,septic emboli, inflammatory vasculitis such as a Franklin's granulomatosis. Followup CT suggested in 3 months to assist with confirmation. This was performed with contrast. Chest x-ray was performed also on the say prior to discharge and did show an approximately 2.6 by 2.7 cm ill-defined nodular opacity within the right middle lobe of the lung with further followup suggested. HOSPITAL COURSE: On the morning of discharge, the patient was sitting up. No further fever. No significant abdominal pain was noted except after breakfast earlier today which subsequently resolved spontaneously. No vomiting evident. The patient was ambulating and otherwise feeling more normal at the time of discharge. She very much wished to continue with outpatient management and followup. PLAN: The patient is discharged home to have close followup with Carlos Eduardo Whitt in the clinic this next week, to call for an appointment by tomorrow. Try a low- fat diet. May benefit from gallbladder ultrasound examination soon. Try yogurt daily while on antibiotics. Copies of lab and x-rays given to assist in followup. She needs a gynecologic evaluation of the uterine fibroid. Followup with the pulmonary nodules, etc., important with Carlos Eduardo Whitt's assistance. Drink plenty of fluids. Repeat chest x-ray and/or chest CT in 3 months as directed by Carlos Eduardo Whitt. Return if not improving. #[id number] [facility]
== END 2017-06-13 17:36 | disposition home or self-care (01) | DRG 392 ==
LOC: ER 10:21 → MS 13:54
PROVIDERS: ADMIT Nurse Practitioner Family; ATTEND Emergency Medicine
PROC: BW21YZZ Computerized Tomography (CT Scan) of Abdomen and Pelvis using Other Contrast (ICD-10-PCS; principal; 2017-06-11)
DX: A08.4 Viral intestinal infection, unspecified (principal); K76.0 Fatty (change of) liver, not elsewhere classified; K59.00 Constipation, unspecified; D25.2 Subserosal leiomyoma of uterus; R91.1 Solitary pulmonary nodule; R51 Headache; E86.0 Dehydration; D72.829 Elevated white blood cell count, unspecified; E66.9 Obesity, unspecified; Z88.0 Allergy status to penicillin; Z68.34 Body mass index [BMI] 34.0-34.9, adult

== ENCOUNTER 2017-08-14 09:11 | Emergency (ER) | payer SELFPAY ==
[2017-08-14 09:21] VITALS: TEMP 99
[2017-08-14] MEDS ORDERED: KETOROLAC TROMETHAMINE INJ 30 MG/ML VIAL IV ONE (09:42)
--- NOTE | 2017-08-14 09:46 | ED.PDOC ---
History of Present Illness - General Chief Complaint: Problem Stated Complaint: Lower abdomen/lower back discomfort Time Seen by Provider: 08/14/17 09:38 Source: patient Exam Limitations: no limitations - History of Present Illness Timing/Duration: yesterday Quality: severe, cramping, steady Onset Location: suprapubic, right flank Radiation: right flank Activites at Onset: none Prior abdominal problems: none Improving Factors: nothing Worsening Factors: movement Associated Symptoms: abdominal pain, dysuria, fever/chills, urinary frequency Allergies/Adverse Reactions: Allergies Penicillins Allergy (Severe, Verified 08/14/17 09:21) Unknown Home Medications: Ambulatory Orders Cefuroxime Axetil [Ceftin] 500 mg PO Q12H #10 tablet 06/13/17 Cefuroxime Axetil 250 mg PO Q12H 14 Days tablet 08/14/17 Flavoxate HCl 200 mg PO Q6HR PRN #20 tab 08/14/17 Review of Systems - Review of Systems Constitutional: States: fever EENTM: States: no symptoms reported Respiratory: Denies: cough, short of breath Cardiology: Denies: chest pain Gastrointestinal/Abdominal: States: abdominal pain. Denies: nausea, vomiting Genitourinary: States: dysuria, frequency, pain Musculoskeletal: States: back pain. Denies: muscle pain Skin: Denies: rash Neurological: Denies: headache, paresthesia Endocrine: States: no symptoms reported Hematologic/Lymphatic: States: no symptoms reported Past Medical History (General) - Patient Medical History Hx Seizures: No Hx Stroke: No Hx Dementia: No Hx Asthma: No Hx of COPD: No Hx Cardiac Disorders: Yes - SVT Hx Congestive Heart Failure: No Hx Pacemaker: No Hx Hypertension: No Hx Thyroid Disease: No Hx Diabetes: No Hx Gastroesophageal Reflux: No Hx Renal Disease: No Hx Cancer: No Hx of HIV: No Hx Hepatitis C: No Hx MRSA: No Surgical History: other - Vaccination History Hx Tetanus, Diphtheria Vaccination: No Hx Influenza Vaccination: No Hx Pneumococcal Vaccination: No - Social History Hx Tobacco Use: No Hx Chewing Tobacco Use: No Hx Alcohol Use: No Hx Substance Use: No Hx Substance Use Treatment: No Hx Depression: No Hx Physical Abuse: No Hx Emotional Abuse: No Hx Suspected Abuse: No - Female History Patient is a Female of Child Bearing Age (10 -59 yrs old): Yes Hx Last Menstrual Period: 11/04/15 Patient : No Expected Date of Delivery:: 12/14/12 Family Medical History - Family History Mother Family History: Unknown Living Status: Hx Cardiac Disease: Yes Physical Exam - Physical Exam General Appearance: Alert, Obvious distress Eyes, Ears, Nose, Throat Exam: PERRL/EOMI Neck: full range of motion, supple Gastrointestinal/Abdominal: normal bowel sounds, soft, tenderness - suprapubic , no guarding or rebound Rectal Exam: deferred Back Exam: CVA tenderness (R), CVA tenderness (L) Extremity: normal range of motion Neurologic: normal mood/affect, oriented x 3 Departure - Departure Clinical Impression: Urinary tract infection Qualifiers: Urinary tract infection type: acute cystitis Hematuria presence: with hematuria Qualified Code(s): N30.01 - Acute cystitis with hematuria Disposition: Discharge to Home or Self Care Departure Forms: ED Discharge - Pt. Copy, Patient Portal Self Enrollment Referrals: GERDA ZEPEDA IV, SPECIAL AGENT [Primary Care Provider] - 1-2 Weeks Prescriptions: Flavoxate HCl 200 mg PO Q6HR PRN #20 tab PRN Reason: Abdominal Cramping Cefuroxime Axetil 250 mg PO Q12H 14 Days tablet Cefuroxime Axetil 250 mg PO Q12H #14 tablet Home Medications: Ambulatory Orders Cefuroxime Axetil [Ceftin] 500 mg PO Q12H #10 tablet 06/13/17 Cefuroxime Axetil 250 mg PO Q12H 14 Days tablet 08/14/17 Flavoxate HCl 200 mg PO Q6HR PRN #20 tab 08/14/17
[2017-08-14] MEDS ORDERED: cefTRIAXone SODIUM 1 GM in SODIUM CHL 0.9% 50ML MIN-BAG+ 50 ML IVPB ONE (09:50)
[2017-08-14] MEDS ORDERED: cefTRIAXone SODIUM 1 GM VIAL ONE (09:59)
[2017-08-14] MEDS ORDERED: SODIUM CHL 0.9% 50ML MIN-BAG+ 50 ML IVPB ONE (09:59)
[2017-08-14 10:18] VITALS: BP 117/74
[2017-08-14] MEDS ORDERED: HYDROcodone 10MG/APAP 325MG 1 EA TAB PO ONE (10:24)
[2017-08-14 11:07] VITALS: O2SAT 95
== END 2017-08-14 10:55 | disposition home or self-care (01) ==
LOC: ER 09:11
DX: N30.01 Acute cystitis with hematuria (principal); R00.0 Tachycardia, unspecified
CPT/HCPCS: 36415; 80053; 81001; 85025; 87086; J0696; J1885; J7050

== ENCOUNTER 2018-05-21 07:39 | Emergency (ER) | payer SELFPAY ==
[2018-05-21 07:55] VITALS: O2SAT 95
[2018-05-21] MEDS ORDERED: PROMETHAZINE HCL INJ 25 MG in SODIUM CHLORIDE 0.9% 50ML 50 ML IVPB ONE (07:56)
[2018-05-21] MEDS ORDERED: SODIUM CHLORIDE 0.9% 1000ML 1,000 ML IVS ONE ×2 (07:56→09:52)
[2018-05-21] MEDS ORDERED: KETOROLAC TROMETHAMINE INJ 30 MG/ML VIAL IV ONE (07:56)
--- NOTE | 2018-05-21 08:09 | ED.PDOC ---
History of Present Illness - General Chief Complaint: Respiratory Problem Stated Complaint: fever, chest congestion Time Seen by Provider: 05/21/18 07:56 Source: patient Exam Limitations: no limitations - History of Present Illness Comments: patient comes in with one-day history of fever to 102, cough, congestion, body aches and clear rhinorrhea. She's also had nausea and vomiting several times throughout the day and did not get her flu shot. Patient has no past medical history her only allergies to penicillin. Timing/Duration: yesterday Cough Quality/Degree: productive cough Possible Cause: no prior episodes Improving Factors: nothing Worsening Factors: nothing Associated Symptoms: earache, fever/chills, muscle aches, nasal drainage, sore throat Allergies/Adverse Reactions: Allergies Penicillins Allergy (Severe, Verified 08/14/17 09:21) Unknown Home Medications: Ambulatory Orders Ondansetron [Zofran Odt] 8 mg PO Q6HRS PRN #15 tab 05/21/18 Oseltamivir Capsule [Tamiflu] 75 mg PO BID 5 Days #10 capsule 05/21/18 Review of Systems - Review of Systems Constitutional: States: chills, fever, malaise EENTM: States: ear pain, nose congestion, throat pain Respiratory: States: cough. Denies: short of breath, wheezing Cardiology: States: chest pain - with cough Gastrointestinal/Abdominal: States: nausea, vomiting. Denies: constipation, layo rrhea Genitourinary: States: no symptoms reported Musculoskeletal: States: see HPI Past Medical History (General) - Patient Medical History Hx Seizures: No Hx Stroke: No Hx Dementia: No Hx Asthma: No Hx of COPD: No Hx Cardiac Disorders: Yes - SVT during pregnancies only x 2 Hx Congestive Heart Failure: No Hx Pacemaker: No Hx Hypertension: No Hx Thyroid Disease: No Hx Diabetes: No Hx Gastroesophageal Reflux: No Hx Renal Disease: No Hx Cancer: No Hx of HIV: No Hx Hepatitis C: No Hx MRSA: No Surgical History: tonsillectomy - Vaccination History Hx Tetanus, Diphtheria Vaccination: No Hx Influenza Vaccination: No Hx Pneumococcal Vaccination: No Immunizations Up to Date: Yes - Social History Hx Tobacco Use: No Hx Chewing Tobacco Use: No Hx Alcohol Use: No Hx Substance Use: No Hx Substance Use Treatment: No Hx Depression: No Hx Physical Abuse: No Hx Emotional Abuse: No Hx Suspected Abuse: No - Female History Hx Last Menstrual Period: 11/04/15 Patient : No Expected Date of Delivery:: 12/14/12 Family Medical History - Family History Mother Family History: Unknown Living Status: Hx Cardiac Disease: Yes Physical Exam - Physical Exam General Appearance: Alert, No apparent distress, Ill Appearing Eye Exam: bilateral normal ENT Exam: TMs normal, pharynx normal, nasal congestion, nasal drainage - clear drainage Neck: non-tender, full range of motion, supple, normal inspection Respiratory: chest non-tender, lungs clear, normal breath sounds, no respiratory distress Cardiovascular/Chest: normal peripheral pulses, regular rate, rhythm, no edema, no murmur Gastrointestinal/Abdominal: normal bowel sounds, non tender, soft Neurologic: alert, oriented x 3 Progress - Results/Orders Results/Orders: Laboratory Results WBC 4.4 K/mm3 (4.8-10.8) L 05/21/18 08:25 RBC 4.45 M/mm3 (4.20-5.40) 05/21/18 08:25 Hgb 12.6 gm/dL (12.0-16.0) 05/21/18 08:25 Hct 37.7 % (36.0-47.0) 05/21/18 08:25 MCV 84.8 fl (81.0-99.0) 05/21/18 08:25 MCH 28.4 pg (27.0-31.0) 05/21/18 08:25 MCHC 33.5 g/dL (33.0-37.0) 05/21/18 08:25 RDW 13.8 % (11.5-14.5) 05/21/18 08:25 Plt Count 169 K/mm3 (130-400) 05/21/18 08:25 MPV 7.2 fl (7.40-10.4) L 05/21/18 08:25 Absolute Neuts (auto) 3.50 K/uL (1.8-6.8) 05/21/18 08:25 Absolute Lymphs (auto) 0.30 K/uL (1.0-3.4) L 05/21/18 08:25 Absolute Monos (auto) 0.50 K/uL (0.2-0.8) 05/21/18 08:25 Absolute Eos (auto) 0.00 K/uL (0.0-0.4) 05/21/18 08:25 Absolute Basos (auto) 0.00 K/uL (0.0-0.1) 05/21/18 08:25 Neutrophils % 80.4 % (42.0-78.0) H 05/21/18 08:25 Lymphocytes % 7.8 % (20.0-50.0) L 05/21/18 08:25 Monocytes % 10.4 % (2.0-9.0) H 05/21/18 08:25 Eosinophils % 0.7 % (1.0-5.0) L 05/21/18 08:25 Basophils % 0.7 % (0.0-2.0) 05/21/18 08:25 Sodium 135 mmol/L (135-145) 05/21/18 08:25 Potassium 3.8 mmol/L (3.6-5.0) 05/21/18 08:25 Chloride 100 mmol/L (101-111) L 05/21/18 08:25 Carbon Dioxide 27 mmol/L (21-31) 05/21/18 08:25 Anion Gap 11.8 (12-18) L 05/21/18 08:25 BUN 8 mg/dL (7-18) 05/21/18 08:25 Creatinine 0.71 mg/dL (0.6-1.3) 05/21/18 08:25 BUN/Creatinine Ratio 11.3 (10-20) 05/21/18 08:25 Random Glucose 120 mg/dL (70-105) H 05/21/18 08:25 Serum Osmolality 269.6 mOsm/L (275-295) L 05/21/18 08:25 Calcium 8.7 mg/dL (8.4-10.2) 05/21/18 08:25 Total Bilirubin 0.5 mg/dL (0.2-1.0) 05/21/18 08:25 AST 70 IU/L (10-42) H 05/21/18 08:25 ALT 120 IU/L (10-60) H 05/21/18 08:25 Alkaline Phosphatase 71 IU/L (42-121) 05/21/18 08:25 Serum Total Protein 7.5 gm/dL (6.4-8.2) 05/21/18 08:25 Albumin 3.9 g/dl (3.2-5.5) 05/21/18 08:25 Globulin 3.6 gm/dL (2.3-3.5) H 05/21/18 08:25 Albumin/Globulin Ratio 1.1 (1.1-1.9) 05/21/18 08:25 Microbiology 05/21/18 08:24 Nose - Final influ A positive Departure - Departure Clinical Impression: Influenza Disposition: Discharge to Home or Self Care Condition: Fair Departure Forms: ED Discharge - Pt. Copy, Patient Portal Self Enrollment Diet: bland diet Referrals: GERDA ZEPEDA IV, [employer] [Primary Care Provider] - 1-2 Weeks Prescriptions: Ondansetron [Zofran Odt] 8 mg PO Q6HRS PRN #15 tab PRN Reason: Nausea Oseltamivir Capsule [Tamiflu] 75 mg PO BID 5 Days #10 capsule Home Medications: Ambulatory Orders Ondansetron [Zofran Odt] 8 mg PO Q6HRS PRN #15 tab 05/21/18 Oseltamivir Capsule [Tamiflu] 75 mg PO BID 5 Days #10 capsule 05/21/18 Additional Instructions: slow return to normal diet. work excuse until no fever x 24 hours, return to ER for intractable emesis, shortness of breath. Patient is contagious and should not be in public (work, yazidi, store) until no fever x 24 hours and feeling better.
[2018-05-21] MEDS ORDERED: SODIUM CHLORIDE 0.9% 50ML 50 ML ONE (08:22)
[2018-05-21] MEDS ORDERED: PROMETHAZINE HCL INJ 25 MG/ML VIAL ONE (08:22)
[2018-05-21] MEDS ORDERED: ACETAMINOPHEN 500 MG TAB PO ONE (09:20)
[2018-05-21 11:12] VITALS: BP 121/60; TEMP 100.8
== END 2018-05-21 11:08 | disposition home or self-care (01) ==
LOC: ER 07:39
DX: J11.1 Influenza due to unidentified influenza virus with other respiratory manifestations (principal); Z88.0 Allergy status to penicillin
CPT/HCPCS: 36415; 80053; 85025; 87502; A4216; J1885; J2550; J7030